=== PATIENT | female | born 1965 | race African-American/Black ===

== ENCOUNTER 2016-08-15 15:50 | Emergency (ER) | payer OTHER ==
[~2016-08-15] VITALS: Ht 157.5 cm; Wt 75.7 kg
--- NOTE | 2016-08-15 16:22 | PHYS DOC ---
Past Medical History Past Medical History: Hypertension, Pneumonia Past Surgical History: , Hysterectomy, Tonsillectomy, Other Alcohol Use: None Drug Use: None Adult General Chief Complaint Chief Complaint: LOWER EXTREMITY SWELLING HPI HPI Patient is a 50 year old female who presents emergency Department with ongoing , worsening atraumatic right knee pain for 2 weeks. Patient denies any previous injuries to her knee as well. She denies a previous surgeries. Patient denies any history of bone forming disorders or inflammatory arthritide's. Patient states that she is pending an appointment with a new healthcare provider in this area. She states that she couldn't wait any longer due to the pain. Review of Systems Review of Systems Constitutional: Denies fever or chills [] Eyes: Denies change in visual acuity, redness, or eye pain [] HENT: Denies nasal congestion or sore throat [] Respiratory: Denies cough or shortness of breath [] Cardiovascular: No additional information not addressed in HPI [] GI: Denies abdominal pain, nausea, vomiting, bloody stools or diarrhea [] : Denies dysuria or hematuria [] Musculoskeletal: Denies back pain or joint pain [] Integument: Denies rash or skin lesions [] Neurologic: Denies headache, focal weakness or sensory changes [] Endocrine: Denies polyuria or polydipsia [] Allergies Allergies Allergies Coded Allergies Type Severity Reaction Last Updated Verified No Known Drug Allergies 08/21/15 No Physical Exam Physical Exam Constitutional: Well developed, well nourished, no acute distress, non-toxic appearance. [] HENT: Normocephalic, atraumatic, bilateral external ears normal, oropharynx moist, no oral exudates, nose normal. [] Eyes: PERRLA, EOMI, conjunctiva normal, no discharge. [] Neck: Normal range of motion, no tenderness, supple, no stridor. [] Cardiovascular:Heart rate regular rhythm, no murmur [] Lungs & Thorax: Bilateral breath sounds clear to auscultation [] Abdomen: Bowel sounds normal, soft, no tenderness, no masses, no pulsatile masses. [] Skin: Warm, dry, no erythema, no rash. [] Back: No tenderness, no CVA tenderness. [] Extremities: Right knee is normal in appearance without erythema or fusiform swelling. There is tenderness to palpation to the medial aspect of the patella as well as medial joint line tenderness. There is no palpable defect or deformity. There is no high riding patella. Flexor extensor mechanism is intact. Ligaments are stable solid endpoints. Neurologic: Alert and oriented X 3, normal motor function, normal sensory function, no focal deficits noted. [] Psychologic: Affect normal, judgement normal, mood normal. [] Current Patient Data Vital Signs Vital Signs Date Time Temp Pulse Resp B/P Pulse Ox O2 Delivery O2 Flow Rate FiO2 08/15/16 16:25 98.7 89 16 100 Room Air 98.7 EKG EKG [] Radiology/Procedures Radiology/Procedures 3 views of patient's right knee were performed with adequate technique. There is no evidence of acute injury. There are multiple areas of exostosis in the knee with joint space narrowing consistent with degenerative changes. Course & Med Decision Making Course & Med Decision Making Pertinent Labs and Imaging studies reviewed. (See chart for details) [] Dragon Disclaimer Dragon Disclaimer This electronic medical record was generated, in whole or in part, using a voice recognition dictation system. Departure Departure Impression: Primary Impression: Osteoarthritis Additional Impression: Knee pain Condition: GOOD Referrals: NO PCP (PCP) PARDEEP BOOTH MD Patient Instructions: Arthritis, Degenerative-Brief, Knee Pain, [id number] Additional Instructions: 1. Review the discharge instructions provided for self-care and reasons to return the emergency department. 2. Take the medication as prescribed. 3. A phone number to an orthopedic doctor's offices been placed in this paperwork. You can follow-up by calling on Wednesday to schedule an appointment. 4. Be sure to make your previously scheduled appointment with a primary care provider as well. Scripts Hydrocodone/Apap 5-325 ([place] 5-325 Tablet)1 Each Tablet1 Tab PO PRN Q6HRS PRN breakthrough pain #15 TAB Ref 0 Prov:SEAN LEMOS 08/15/16 Diclofenac Sodium 50 Mg Tablet.dr1 Tab PO BID knee pain #60 TAB Ref 1 Prov:SEAN LEMOS 08/15/16 Problem Qualifiers SEAN LEMOS Aug 15, 2016 16:22
[2016-08-15 16:25] VITALS: BP 196/104
[2016-08-15] MEDS ORDERED: DICL50TA4 PO (17:12)
[2016-08-15] MEDS ORDERED: HYDR-971 PO (17:12)
--- NOTE | 2016-08-16 08:11 | RAD ---
KNEE RIGHT 3V History:anteromedial pain, swelling of the right knee for one week, pain for 2 weeks Comparison: None Findings:3 views right knee are submitted. There is no significant joint effusion. There is moderate to severe narrowing of the medial compartment joint space, mild/moderate narrowing laterally and also mild narrowing of the patellofemoral joint space. There is osteophyte formation greatest of the medial compartment. As suggested on lateral view, there may be a small bony defect along the articular surface of the distal femur. Impression: 1.There is tricompartmental osteoarthritic change greatest of the medial compartment. There may be a small bony defect along the articular surface of the distal femur characterized with MRI if needed.
== END 2016-08-15 17:15 | disposition home or self-care (01) ==
LOC: ER 15:50
DX: M17.11 Unilateral primary osteoarthritis, right knee (principal); I10 Essential (primary) hypertension; Z90.710 Acquired absence of both cervix and uterus
CPT/HCPCS: 73562; 99284